=== PATIENT | male | born 1985 | race Caucasian/White ===

== ENCOUNTER → 2022-10-20 | Outpatient (CLI) | payer SELFPAY ==
--- NOTE | 2022-10-20 14:12 | RAD_ITS ---
INDICATION: L middle finger inj EXAMINATION/TECHNIQUE: X-RAY - LEFT HAND XR Fingers Min 2 Views 3 VIEWS COMPARISON: No relevant prior comparison study available FINDINGS: SOFT TISSUES: Soft tissue amputation at tip of the 3rd digit. No radiopaque foreign body. BONES/JOINTS: Subtle indentation of the tip at the tuft of the distal phalanx of 3rd digit. No retained foreign bodies noted. Remaining bony elements and joint spaces are maintained. RAD/Finger(s) Min 2 Views IMPRESSION: 1. Soft tissue and bony amputation of the distal middle phalanx. Only minimal amputation of the tuft of the distal phalanx. 2. No other bony or joint space abnormality. No radiopaque foreign body noted. Electronically Signed: Edmond Harris MD at 20:49 EDT ,
== END | disposition home or self-care (01) ==
PROVIDERS: PCP Family Medicine; Referring Provider Physician Assistant Surgical; Visit Provider Physician Assistant Surgical
DX: S61.303A Unspecified open wound of left middle finger with damage to nail, initial encounter (principal)
CPT/HCPCS: 73140